=== PATIENT | female | born 1955 | race Caucasian/White ===

== ENCOUNTER 2017-11-03 11:08 | Day surgery (SDC) | payer MEDICAID ==
[2017-10-29 08:17] VITALS: BMI 29.9
[~2017-11-03 11:08] MED LIST: DEXAMETHASONE SOD PHOSPHATE 10 MG/ML 1 ML VIAL IV ONE; HYDROmorphone 0.5 MG/0.5 ML SYRINGE IVP PRN; LACTATED RINGERS 1,000 ML IV SCH; LIDOCAINE 1% 20 ML VIAL (10MG/ML) FOR IV START INTRADERMA PRN; ONDANSETRON 4 MG/2 ML VIAL IVP ONE; Pre Op ABX Message 1 EACH MISC MISCELLANE ONE; SCOPOLAMINE 1.5MG/72HR PATCH TRANSDERM ONE
[2017-11-03 11:40] VITALS: RESP 16; TEMP 97.3
[2017-11-03 12:07] LABS: Glucose,Whole Blood 99 mg/dL (75-99)
[2017-11-03] MEDS: MIDAZOLAM 2 MG/2 ML VIAL IV PRN ×2 (12:10→12:32)
[2017-11-03] MEDS ORDERED: diphenhydrAMINE 50 MG/ML 1 ML VIAL ONE (13:28)
[2017-11-03] MEDS ORDERED: LIDOCAINE 2%-EPI 1:100,000 20 ML VIAL ONE (13:28)
[2017-11-03] MEDS ORDERED: LIDOCAINE 1% INJ 10MG/ML (20 ML MDV) ONE (13:28)
[2017-11-03] MEDS ORDERED: MIDAZOLAM 2 MG/2 ML VIAL ONE (13:28)
[2017-11-03] MEDS ORDERED: ROPIVACAINE 5 MG/ML 30 ML VIAL ONE (13:28)
[2017-11-03] MEDS ORDERED: PROPOFOL 10 MG/ML 20 ML VIAL IV ONE (13:28)
[2017-11-03] MEDS ORDERED: fentaNYL (PF) 50 MCG/ML 2 ML AMP ONE (13:28)
[2017-11-03] MEDS ORDERED: ROPIVACAINE 5 MG/ML 30 ML VIAL MISCELLANE ONE (13:41)
[2017-11-03] MEDS ORDERED: LIDOCAINE 2% (PF) 20 MG/ML 2 ML VIAL SQ ONE (13:41)
[2017-11-03 14:58] VITALS: BP 121/78; PULSE 67
--- NOTE | 2017-11-04 07:54 | OP ---
OPERATIVE REPORT DATE OF SURGERY: 11/03/2017 PREOPERATIVE DIAGNOSIS: Advanced basal joint arthritis right thumb POSTOP DIAGNOSIS: Advanced basal joint arthritis, right thumb. PROCEDURE: Excision of trapezium with ligament reconstruction, tendon interposition arthroplasty using the flexor carpi radialis, basal joint, right thumb. DESCRIPTION OF PROCEDURE: The patient was taken to the Operative Suite after an axillary block was performed by the Department of Anesthesia in the holding area with good results. The involved arm was prepped and draped in the usual manner, elevated, exsanguinated and blood pressure tourniquet inflated to 250 mm of mercury. A volar incision was made over the palm of the hand using a Jerez approach. The dissection was taken through the subcutaneous tissue bluntly to identify and to preserve sensory branches. The flexor carpi radialis tendon was initially identified and kept in view throughout the remainder of the procedure. The thenar muscles were then gently dissected off of the volar capsule and reflected ulnarly and distally. Longitudinal arthrotomy was then made into the trapezial metacarpal and scaphotrapezial joints. The trapezium was dissected sharply with a little traction on the thumb and care again, given to monitoring the position of the flexor carpi radialis. The trapezium was osteotomized and removed in piecemeal fashion using rongeur. Again, the flexor carpi radialis tendon was kept intact so as not to be harmed during this portion of the procedure. A drill hole was then made into the base of the first metacarpal, beginning with an awl and enlarged using drill bits and a large curette. A similar hole was drilled on the dorsal aspect of the base of the first metacarpal perpendicular to the plane of the nail bed. Attention was then turned to harvesting the flexor carpi radialis. Approximately 8 to 10 cm proximal to the wrist, small transverse incision was made and blunt dissection was taken through the subcutaneous tissue. The flexor carpi radialis tendon was identified and released to this level. It was retracted into the wrist wound with a gentle tug. A suspension sling arthroplasty was then performed along with ligament reconstruction of the deep volar ligament using the flexor carpi radialis tendon. The edge of the tendon was secured with suture. The suture was then passed into the base of the first metacarpal and brought out through the dorsal drill hole and brought back down upon itself and abductor pollicis longus tendons. It was secured in place with 3-0 PDS suture. It was then brought back around itself, back through the abductor pollicis longus tendons, and back down upon itself again and further secured with 3-0 PDS suture. Again, in this manner reconstruction of the deep volar ligament was accomplished as well as a suspension sling arthroplasty and natural tendon spacer for the joint. Next, a longitudinal incision was made along the ring finger ray distal to the wrist crease. Dissection was taken through the skin and subcutaneous tissue, initially sharp through the skin and then blunt through the subcutaneous tissue to ensure protection of any potential terminal transverse branches of the palmar cutaneous nerve. The palmar fascia was then incised under direct vision longitudinally exposing the transverse carpal ligament. The transverse carpal ligament also was incised under direct visualization. The median nerve was then reflected free of tenosynovium to ensure no adhesions. At this point, a slight hour glass constriction was noted of the median nerve beneath the transverse carpal ligament. Both wounds were again irrigated and were closed with running and interrupted 5-0 nylon suture. A soft bulky dressing was then applied including the volar plaster splint, immobilizing the wrist in neutral position and a thumb spica splint to the IP joint, immobilizing the thumb. The patient was then taken to the Recovery Room in satisfactory condition. CLINT / JORDINN: [id number] /
== END 2017-11-03 15:03 | disposition home or self-care (01) ==
LOC: OR 11:08
PROVIDERS: ATTEND Orthopaedic Surgery Hand Surgery
DX: M13.841 Other specified arthritis, right hand (principal); I10 Essential (primary) hypertension; E78.5 Hyperlipidemia, unspecified; E07.9 Disorder of thyroid, unspecified; E11.9 Type 2 diabetes mellitus without complications; Z79.84 Long term (current) use of oral hypoglycemic drugs; Z79.890 Hormone replacement therapy; Z79.899 Other long term (current) drug therapy; Z88.5 Allergy status to narcotic agent
CPT/HCPCS: 25447; 25310; J2250; J1200; J1100; J2405; J2001; J3010; J2795; J2704

== ENCOUNTER 2019-04-06 09:58 | Day surgery (SDC) | payer MEDICAID ==
[2019-04-02 14:10] VITALS: BMI 29.9
[~2019-04-06 09:58] MED LIST changes: -DEXAMETHASONE SOD PHOSPHATE 10 MG/ML 1 ML VIAL IV ONE; -HYDROmorphone 0.5 MG/0.5 ML SYRINGE IVP PRN; -Pre Op ABX Message 1 EACH MISC MISCELLANE ONE; -SCOPOLAMINE 1.5MG/72HR PATCH TRANSDERM ONE
[2019-04-06] MEDS ORDERED: MIDAZOLAM 2 MG/2 ML VIAL IV ONE (10:30)
[2019-04-06 10:39] LABS: Glucose,Whole Blood 113 mg/dL (75-99)
--- NOTE | 2019-04-06 10:47 | P.ANPRN ---
Procedure Note - Anesthesia - Nerve Block Performed Left Axillary Single Time Out Performed: Yes Date of Procedure: 04/06/19 Procedure Start Time: 10:29 Procedure Stop Time: 10:39 Location of Patient: PreOp Indication: Acute Post-Operative Pain, Requested by Surgeon Sedation Type: Sedate with meaningful contact maintained Preparation: Sterile Prep Position: Supine Catheter: None Needle Types: Facet Needle Gauge: 21 Ultrasound used to visualize needle placement: Yes Ultrasound used to observe medication spread: Yes Injectate: 0.5% Ropivacaine (see comment for volume) (40 CC) Blood Aspirated: No Pain Paresthesia on Injection Noted: No Resistance on Injection: Normal Image Stored and Saved: Yes Events: Uneventful and Well Tolerated
[2019-04-06 10:48] VITALS: RESP 16; TEMP 97
[2019-04-06] MEDS ORDERED: SCOPOLAMINE 1.5MG/72HR PATCH TRANSDERM ONE (10:48)
[2019-04-06] MEDS ORDERED: DEXAMETHASONE SOD PHOSPHATE 10 MG/ML 1 ML VIAL IV ONE (10:48)
[2019-04-06] MEDS ORDERED: ROPIVACAINE 5 MG/ML 30 ML VIAL ONE (11:29)
[2019-04-06] MEDS ORDERED: LIDOCAINE 1% INJ 10MG/ML (20 ML MDV) ONE (11:29)
[2019-04-06] MEDS ORDERED: MIDAZOLAM 2 MG/2 ML VIAL ONE (11:29)
[2019-04-06] MEDS ORDERED: PROPOFOL 10 MG/ML 20 ML VIAL IV ONE (11:29)
[2019-04-06] MEDS ORDERED: fentaNYL (PF) 50 MCG/ML 2 ML AMP ONE (11:29)
[2019-04-06 12:55] VITALS: BP 109/70; PULSE 71
--- NOTE | 2019-04-07 09:19 | OP ---
OPERATIVE REPORT DATE OF SURGERY: 04/06/2019 PREOPERATIVE DIAGNOSIS: Basal joint arthritis, left thumb. FINAL DIAGNOSIS: Basal joint arthritis, left thumb. PROCEDURE: Excision trapezium with ligament reconstruction tendon interposition arthroplasty using flexor carpi radialis tendon. SUPERINTENDENT OF GENERATION: Radha Flannery NP DESCRIPTION OF PROCEDURE: The patient was taken to the Operative Suite after an axillary block was performed by the Department of Anesthesia in the holding area with good results. The involved arm was prepped and draped in the usual manner, elevated, exsanguinated and blood pressure tourniquet inflated to 250 mm of mercury. A volar incision was made over the palm of the hand using a Jerez approach. The dissection was taken through the subcutaneous tissue bluntly to identify and to preserve sensory branches. The flexor carpi radialis tendon was initially identified and kept in view throughout the remainder of the procedure. The thenar muscles were then gently dissected off of the volar capsule and reflected ulnarly and distally. Longitudinal arthrotomy was then made into the trapezial metacarpal and scaphotrapezial joints. The trapezium was dissected sharply with a little traction on the thumb and care again, given to monitoring the position of the flexor carpi radialis. The trapezium was osteotomized and removed in piecemeal fashion using rongeur. Again, the flexor carpi radialis tendon was kept intact so as not to be harmed during this portion of the procedure. A drill hole was then made into the base of the first metacarpal, beginning with an awl and enlarged using drill bits and a large curette. A similar hole was drilled on the dorsal aspect of the base of the first metacarpal perpendicular to the plane of the nail bed. Attention was then turned to harvesting the flexor carpi radialis. Approximately 8 to 10 cm proximal to the wrist, small transverse incision was made and blunt dissection was taken through the subcutaneous tissue. The flexor carpi radialis tendon was identified and released to this level. It was retracted into the wrist wound with a gentle tug. A suspension sling arthroplasty was then performed along with ligament reconstruction of the deep volar ligament using the flexor carpi radialis tendon. The edge of the tendon was secured with suture. The suture was then passed into the base of the first metacarpal and brought out through the dorsal drill hole and brought back down upon itself and abductor pollicis longus tendons. It was secured in place with 3-0 PDS suture. It was then brought back around itself, back through the abductor pollicis longus tendons, and back down upon itself again and further secured with 3-0 PDS suture. Again, in this manner reconstruction of the deep volar ligament was accomplished as well as a suspension sling arthroplasty and natural tendon spacer for the joint. The wound was irrigated and were closed with running and interrupted 5-0 nylon suture. A soft bulky dressing was then applied including the volar plaster splint, immobilizing the wrist in neutral position and a thumb spica splint to the IP joint, immobilizing the thumb. The patient was then taken to the Recovery Room in satisfactory condition. MMODL / IJN: [id number] /
== END 2019-04-06 13:15 | disposition home or self-care (01) ==
LOC: OR 09:58
PROVIDERS: ATTEND Orthopaedic Surgery Hand Surgery
DX: M19.042 Primary osteoarthritis, left hand (principal); M19.032 Primary osteoarthritis, left wrist; I10 Essential (primary) hypertension; E78.5 Hyperlipidemia, unspecified; E11.9 Type 2 diabetes mellitus without complications; K21.9 Gastro-esophageal reflux disease without esophagitis; Z79.84 Long term (current) use of oral hypoglycemic drugs; Z79.890 Hormone replacement therapy; Z79.899 Other long term (current) drug therapy; Z88.5 Allergy status to narcotic agent; Z98.890 Other specified postprocedural states; Z90.49 Acquired absence of other specified parts of digestive tract; Z82.49 Family history of ischemic heart disease and other diseases of the circulatory system; Z86.79 Personal history of other diseases of the circulatory system
CPT/HCPCS: 25447; 25310; 64417; J2250; J1100; J2405; J2001; J3010; J2795; J2704; 64415; 76942